=== PATIENT | female | born 1990 | race Caucasian/White ===

== ENCOUNTER 2017-01-20 12:52 | Emergency (ER) | payer SELFPAY ==
--- NOTE | 2017-01-20 13:41 | XRay Report ---
LEFT HAND THREE VIEWS: 01/20/17 12:52:00 CLINICAL: Left hand pain. FINDINGS: Normal bones and joints. No fracture or dislocation. Mild soft tissue swelling of the index finger, thumb and middle finger. No soft tissue air or foreign body. IMPRESSION: Nonspecific soft tissue swelling but otherwise normal.
--- NOTE | 2017-01-20 13:44 | Emergency Department Report ---
ED Upper Extremity Inj HPI - General Chief Complaint: Extremity Injury, Upper Stated Complaint: SWOLLEN LEFT HAND Time Seen by Provider: 01/20/17 13:43 Source: patient Mode of arrival: Ambulatory Limitations: No Limitations - History of Present Illness Complaint: Injury to:: left -: Gradual, days(s) (2) Other Extremity Injury: Fingers: Left, Hand: Left Other Injuries: abdomen Place: home Improves With: none Worsens With: none Context: other (none) Associated Symptoms: denies other symptoms. denies: weakness, numbness, neck pain, suspects foreign body, nausea/vomiting, heard/felt popping sensat Treatments Prior to Arrival: cold therapy, NSAIDS - Related Data Previous Rx's Medication Instructions Recorded Last Taken Type methylPREDNISolone [Medrol] 4 mg PO DAILY #1 tab.ds.pk 01/20/17 Unknown Rx Allergies Allergy/AdvReac Type Severity Reaction Status Date / Time Penicillins Allergy Itching Verified 01/20/17 12:58 ED Review of Systems ROS: Stated complaint: SWOLLEN LEFT HAND Other details as noted in HPI Comment: All other systems reviewed and negative Constitutional: no symptoms reported, see HPI Eyes: as per HPI ENT: as per HPI Respiratory: no symptoms reported, see HPI Cardiovascular: as per HPI Endocrine: no symptoms reported, see HPI Gastrointestinal: as per HPI Genitourinary: as per HPI Musculoskeletal: as per HPI, joint swelling (hand), other (no lac. abrasion. bite. no trauma. no fall. r handed. this is l hand pain. ). denies: back pain, arthralgia, myalgia Skin: as per HPI Neurological: as per HPI Psychiatric: as per HPI Hematological/Lymphatic: as per HPI ED Past Medical Hx - Past Medical History Previous Medical History?: Yes Additional medical history: vaginal dleivery x 3 - Surgical History Past Surgical History?: Yes Additional Surgical History: Ruptured spleen and repair of spleen - Family History Family history: no significant - Social History Smoking Status: Current Some Day Smoker Substance Use Type: Alcohol, Non Opiate Pain - Medications Home Medications: Home Medications Medication Instructions Recorded Confirmed Last Taken Type methylPREDNISolone [Medrol] 4 mg PO DAILY #1 tab.ds.pk 01/20/17 Unknown Rx ED Physical Exam - General Limitations: No Limitations ED Course Vital Signs 01/20/17 12:58 Temperature 97.9 F Pulse Rate 86 Respiratory 18 Rate Blood Pressure 102/59 O2 Sat by Pulse 99 Oximetry - Reevaluation(s) Reevaluation #1: 01/20/17 14:27 to er l hand mild soft tissue swelling and pain started about 1 w ago at base thumb then resolved then recurred but at base of 3/4 finger no lac. no bite. no abrasion. no fever. 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 He does not think it is concerning for tenosyn. WBC n dc home w dc poc given instructions on when to return home rx follow up ortho on Sunday verbalizes understanding. ED Medical Decision Making - Lab Data Result diagrams: 01/20/17 15:05 01/20/17 15:05 - Radiology Data Radiology results: report reviewed - Medical Decision Making xray neg fx cbc normal Dr Cuevas to bedside to examine pt dc home w dc poc and ortho fu - Differential Diagnosis carpel tunnel; radial or ulnar neuropathy; fracture; tenosynoven. Critical care attestation.: If time is entered above; I have spent that time in minutes in the direct care of this critically ill patient, excluding procedure time. ED Disposition Clinical Impression: Hand pain, Hand swelling Disposition: DC- TO HOME OR SELFCARE Is pt being admited?: No Does the pt Need Aspirin: No Condition: Stable Instructions: Carpal Tunnel Syndrome (ED) Additional Instructions: elevated hand alternate warm and cold compresses continue motrin if needed for pain meds as ordered today follow up ORTHO on Sunday for reevaluation if your hand starts to turn red, you get a fever, or the swelling increases then return to the ER for recheck Prescriptions: methylPREDNISolone [Medrol] 4 mg PO DAILY #1 tab.ds.pk Referrals: PRIMARY CARE, [Primary Care Provider] - 3-5 Days CHEPE ASHFORD MD [Staff Physician] - 3-5 Days Forms: Work/School Release Form(ED) Time of Disposition: 15:22
[2017-01-20] MEDS ORDERED: TORADOL IM ONE (14:15)
[2017-01-20 15:14] LABS: Basophils % (Auto) 0.5 % (0.0-1.8); Eosinophils % (Auto) 1.7 % (0.0-4.3); Hematocrit 37.4 % (30.3-42.9); Hemoglobin 12.7 gm/dl (10.1-14.3); Mean Corpuscular HGB Conc 34 % (30-34); Mean Corpuscular Hemoglobin 32 pg (28-32); Mean Corpuscular Volume 93 fl (79-97); Platelet Count 170 K/mm3 (140-440); Red Blood Count 4.01 M/mm3 (3.65-5.03); White Blood Count 7.9 K/mm3 (4.5-11.0)
[2017-01-20] MEDS ORDERED: DELTASONE PO ONE (15:22)
[2017-01-20 15:34] LABS: Alanine Aminotransferase 25 units/L (7-56); Albumin 4.4 g/dL (3.9-5); Albumin/Globulin Ratio 1.5 %; Alkaline Phosphatase 42 units/L (35-129); Anion Gap 17 mmol/L; BUN/Creatinine Ratio 16.66; Blood Urea Nitrogen 10 mg/dL (7-17); Calcium 8.7 mg/dL (8.4-10.2); Carbon Dioxide 24 mmol/L (22-30); Chloride 101.5 mmol/L (98-107); Glucose 85 mg/dL (65-100); Potassium 4.1 mmol/L (3.6-5.0); Sodium 138 mmol/L (137-145); Total Protein 7.3 g/dL (6.3-8.2)
[2017-01-20 16:10] VITALS: BP 100/79
== END 2017-01-20 15:25 | disposition home or self-care (01) ==
LOC: ED 12:52
DX: S69.92XA Unspecified injury of left wrist, hand and finger(s), initial encounter (principal); M79.642 Pain in left hand; R22.32 Localized swelling, mass and lump, left upper limb; Z88.0 Allergy status to penicillin; F17.200 Nicotine dependence, unspecified, uncomplicated
CPT/HCPCS: 36415; 73130; 80053; 85025; 96372; 99284; J1885; J7512